=== PATIENT | female | born 1985 | race Two or more races ===

== ENCOUNTER 2019-07-06 00:40 | Emergency (ER) | payer OTHER ==
[~2019-07-06] VITALS: Ht 162.6 cm; Wt 84.1 kg
[~2019-07-06 00:40] MED LIST: INSU100C3 SQ
[2019-07-06 01:02] LABS: GLUCOSE,POINT OF CARE 154 MG/DL (70-110)
[2019-07-06 01:38] VITALS: BP 135/93
[2019-07-06] MEDS ORDERED: ACETAMINOPHEN 500 MG TABLET PO ONE (02:00)
[2019-07-06] MEDS ORDERED: BENZONATATE 100 MG CAPSULE PO ONE (03:15)
[2019-07-06] MEDS ORDERED: ALBUTEROL SULFATE HFA 90 MCG/PUFF 8 GM INHALER IH ONE (03:15)
== END 2019-07-06 03:33 | disposition home or self-care (01) ==
LOC: EMS 00:40
DX: B34.9 Viral infection, unspecified (principal); F17.210 Nicotine dependence, cigarettes, uncomplicated; E11.9 Type 2 diabetes mellitus without complications; Z79.4 Long term (current) use of insulin
CPT/HCPCS: 94640; 99406; J3535